=== PATIENT | female | born 1955 | race Caucasian/White ===

== ENCOUNTER → 2016-11-23 | Outpatient (CLI) | payer BC ==
--- NOTE | 2016-11-24 12:17 | MM ---
Reason for exam: screening (asymptomatic). Last mammogram was performed 1 year and 1 month ago. History: Patient is postmenopausal. Family history of premenopausal breast cancer in paternal cousin at age 40, breast cancer in paternal aunt, breast cancer in 3 maternal aunts, and breast cancer in mother at age 60. Benign excisional biopsy of the right breast, 1988. Took hormonal contraceptives for 3 years. Took progesterone for 2 years 6 months beginning at age 54. Physical Findings: A clinical breast exam by your physician is recommended on an annual basis and results should be correlated with mammographic findings. MG 3D Screening Mammo W/Cad Bilateral CC and MLO view(s) were taken. Prior study comparison: October 15, 2015, bilateral MG 3d screening mammo w/cad. September 11, 2014, bilateral MG screening mammo w CAD. There are scattered fibroglandular densities. Small nodular asymmetry subareolar right breast CC view incompletely disperses on 3D images and seems more defined, further evaluation recommended. ASSESSMENT: Incomplete: need additional imaging evaluation, BI-RAD 0 RECOMMENDATION: Special view mammogram of the right breast. If lesion persists on supplemental views, image directed ultrasound is recommended. [facility] will attempt to contact patient to return for supplemental views and ultrasound if indicated.
== END ==
LOC: RADMAMWWP 15:33
PROVIDERS: ATTEND Obstetrics & Gynecology
DX: Z12.31 Encounter for screening mammogram for malignant neoplasm of breast (principal); Z80.3 Family history of malignant neoplasm of breast
CPT/HCPCS: 77063; G0202

== ENCOUNTER → 2016-11-25 | Outpatient (CLI) | payer BC ==
--- NOTE | 2016-11-25 10:33 | MM ---
Reason for exam: additional evaluation requested from abnormal screening. Last mammogram was performed less than 1 month ago. History: Patient is postmenopausal. Family history of premenopausal breast cancer in paternal cousin at age 40, breast cancer in paternal aunt, breast cancer in 3 maternal aunts, and breast cancer in mother at age 60. Benign excisional biopsy of the right breast, 1988. Took hormonal contraceptives for 3 years. Took progesterone for 2 years 6 months beginning at age 54. Physical Findings: Nurse did not find any significant physical abnormalities on exam. MG 3D Work Up W/Cad RT Spot compression CC, spot compression MLO, and LM view(s) were taken of the right breast. Prior study comparison: November 23, 2016, bilateral MG 3d screening mammo w/cad. October 15, 2015, bilateral MG 3d screening mammo w/cad. September 11, 2014, bilateral MG screening mammo w CAD. There are scattered fibroglandular densities. The subareolar nodular asymmetry appears to disperse on spot tomosynthesis CC view. A precautionary 6 month follow up is recommended. These results were verbally communicated with the patient and result sheet given to the patient on 11/25/16. ASSESSMENT: Probably benign, BI-RAD 3 RECOMMENDATION: Follow-up diagnostic mammogram of the right breast in 6 months.
== END | disposition home or self-care (01) ==
LOC: RADMAMWWP 09:37
PROVIDERS: ATTEND Obstetrics & Gynecology
DX: R92.8 Other abnormal and inconclusive findings on diagnostic imaging of breast (principal)
CPT/HCPCS: G0206; G0279

== ENCOUNTER → 2017-06-10 | Outpatient (CLI) | payer BC ==
--- NOTE | 2017-06-10 11:20 | MM ---
Reason for exam: follow-up at short interval from prior study. Last mammogram was performed 6 months ago. History: Patient is postmenopausal. Family history of premenopausal breast cancer in paternal cousin at age 40, breast cancer in paternal aunt, breast cancer in 3 maternal aunts, and breast cancer in mother at age 60. Benign excisional biopsy of the right breast, 1988. Took hormonal contraceptives for 3 years. Took progesterone for 2 years 6 months beginning at age 54. Physical Findings: Nurse did not find any significant physical abnormalities on exam. MG 3D Diag Mammo W/Cad RT CC, MLO, and ML view(s) were taken of the right breast. Prior study comparison: November 25, 2016, right breast MG 3d work up w/cad RT. November 23, 2016, bilateral MG 3d screening mammo w/cad. There are scattered fibroglandular densities. Finding: There are typically benign round, grouped/clustered calcifications in the right breast. There is no discrete abnormality. These results were verbally communicated with the patient and result sheet given to the patient on 06/10/17. ASSESSMENT: Benign, BI-RAD 2 RECOMMENDATION: Return to routine screening mammogram schedule for both breasts. Back on schedule for November 2017.
== END | disposition home or self-care (01) ==
LOC: RADMAMWWP 10:21
PROVIDERS: ATTEND Obstetrics & Gynecology
DX: R92.8 Other abnormal and inconclusive findings on diagnostic imaging of breast (principal)
CPT/HCPCS: 77065; G0279

== ENCOUNTER → 2017-12-02 | Outpatient (CLI) | payer BC ==
--- NOTE | 2017-12-06 09:51 | MM ---
Reason for exam: screening (asymptomatic). Last mammogram was performed 6 months ago. History: Patient is postmenopausal. Family history of premenopausal breast cancer in mother at age 50, breast cancer in cousin at age 40, breast cancer in 3 maternal aunts, and breast cancer in paternal aunt. Benign excisional biopsy of the right breast, 1988. Took hormonal contraceptives for 3 years. Took progesterone for 2 years 6 months beginning at age 54. Physical Findings: A clinical breast exam by your physician is recommended on an annual basis and results should be correlated with mammographic findings. MG 3D Screening Mammo W/Cad Bilateral CC and MLO view(s) were taken. Prior study comparison: June 10, 2017, right breast MG 3d diag mammo w/cad RT. November 25, 2016, right breast MG 3d work up w/cad RT. There are scattered fibroglandular densities. No significant changes when compared with prior studies. ASSESSMENT: Negative, BI-RAD 1 RECOMMENDATION: Routine screening mammogram of both breasts in 1 year.
== END | disposition home or self-care (01) ==
LOC: RADMAMWWP 15:22
PROVIDERS: ATTEND Pediatrics
DX: Z12.31 Encounter for screening mammogram for malignant neoplasm of breast (principal)
CPT/HCPCS: 77063; 77067